=== PATIENT | male | born 1965 | race Caucasian/White ===

== ENCOUNTER 2016-07-06 19:05 | Emergency (ER) | payer MEDICARE | END 2016-07-06 23:59 | disposition home or self-care (01) | LOC: ER1 19:05 | DX: S01.81XA Laceration without foreign body of other part of head, initial encounter (principal); S01.511A Laceration without foreign body of lip, initial encounter; S93.401A Sprain of unspecified ligament of right ankle, initial encounter; S00.83XA Contusion of other part of head, initial encounter; I10 Essential (primary) hypertension; E11.9 Type 2 diabetes mellitus without complications; E66.9 Obesity, unspecified; Z23 Encounter for immunization; Z88.8 Allergy status to other drugs, medicaments and biological substances; Z79.82 Long term (current) use of aspirin; W17.89XA Other fall from one level to another, initial encounter | CPT/HCPCS: 12013; 70450; 72125; 73610; 73630; 90471; 90714; 99284 ==

== ENCOUNTER 2020-07-01 19:23 | Inpatient (IN) | payer OTHER ==
[~2020-07-01] VITALS: Ht 185.4 cm; Wt 125.8 kg
[~2020-07-01 19:23] MED LIST: ALDACTAZIDE 251 EACH PO; ALDACTONE50 MG PO; ATORVASTATIN CA40 MG PO; BASAGLAR K100 UNIT/1 SQ; CARDIZEM CD180 MG PO; CELEBREX 200MG200 MG PO; ECOTRIN81 MG PO; FLEXERIL 10 MG10 MG PO; FLOMAX 0.4 MG0.4 MG PO; HUMALOG100 UNIT/2 SQ; IBUPROFEN800 MG PO; IPRAT-ALBUT 0.5-3 ML INH; KLOR-CON M1010 MEQ PO; LASIX20 MG PO; LEVAQUIN500 MG PO; LISINOPRIL5 MG PO; LOPRESSOR 25 MG25 MG PO; MOBIC7.5 MG PO; NEURONTIN300 MG PO; NORVASC 5 MG TAB5 MG PO; NORVASC10 MG PO; OMEPRAZOLE20 MG PO; PAROXETINE HCL20 MG PO; ROBAXIN500 MG PO; TOUJEO SQ
[2020-07-01 20:17] LABS: HEMOGLOBIN 13.2 gm/dl (14.0-17.5); RED BLOOD COUNT 4.45 M/UL (4.20-5.50); WHITE BLOOD COUNT 6.5 K/UL (4.5-11.0)
[2020-07-01 20:32] LABS: BUN/CREATININE RATIO 19 (0-10)
--- NOTE | 2020-07-02 04:32 | NUR ---
07/02/20 0025 PT NOT SURE OF HOME MEDS. STATES SOME OF THEM HAVE CHANGED VERY RECENT. WOULD LIKE FOR US TO CALL [facility] IN [place] FOR MED LIST. WILL PASS THIS ON TO DAY SHIFT.
[2020-07-02 06:03] LABS: HEMOGLOBIN 13.4 gm/dl (14.0-17.5); RED BLOOD COUNT 4.58 M/UL (4.20-5.50); WHITE BLOOD COUNT 6.8 K/UL (4.5-11.0)
[2020-07-02] MEDS ORDERED: NOVOLOG100 UNIT/1 SC (09:55)
[2020-07-02] MEDS ORDERED: COREG12.5 MG PO (09:59)
[2020-07-02] MEDS ORDERED: SPIRIVA18 MCG INH (10:00)
[2020-07-02] MEDS ORDERED: VENTOLIN HFA 66.7 GM INH (10:00)
[2020-07-02] MEDS ORDERED: CIALIS5 MG PO (10:10)
[2020-07-02] MEDS ORDERED: ADVAIR 250-501 EACH INH (10:16)
[2020-07-02] MEDS ORDERED: CYMBALTA30 MG PO (10:18)
[2020-07-02] MEDS ORDERED: LASIX40 MG PO (10:19)
[2020-07-02] MEDS ORDERED: ZYRTEC10 M3 PO (10:21)
[2020-07-02] MEDS ORDERED: VOLTAREN ARTHRI20 GM TOP (10:22)
--- NOTE | 2020-07-03 02:16 | NUR ---
07/02/201924 PT HAS INSULIN PUMP. PT IS ABLE TO MONITOR HIS OWN BLOOD SUGAR.
[2020-07-03 04:40] LABS: HEMOGLOBIN 13.5 gm/dl (14.0-17.5); RED BLOOD COUNT 4.61 M/UL (4.20-5.50); WHITE BLOOD COUNT 7.7 K/UL (4.5-11.0)
[2020-07-03 05:08] LABS: BUN/CREATININE RATIO 24 (0-10)
[2020-07-04 07:12] LABS: HEMOGLOBIN 14.6 gm/dl (14.0-17.5); WHITE BLOOD COUNT 7.6 K/UL (4.5-11.0)
[2020-07-04 07:13] LABS: RED BLOOD COUNT 5.17 M/UL (4.20-5.50)
[2020-07-04 07:44] LABS: BUN/CREATININE RATIO 29 (0-10)
[2020-07-05 07:15] LABS: HEMOGLOBIN 15.6 gm/dl (14.0-17.5); RED BLOOD COUNT 5.29 M/UL (4.20-5.50); WHITE BLOOD COUNT 6.8 K/UL (4.5-11.0)
[2020-07-05] MEDS ORDERED: ENTRESTO 24 MG1 EACH PO (11:30)
[2020-07-05] MEDS ORDERED: ZAROXOLYN/DIULO5 MG PO (11:30)
== END 2020-07-05 14:28 | disposition home or self-care (01) | DRG 292 ==
LOC: ER1 19:23 → CDU 21:47 → MED SURG 4 21:47
PROVIDERS: Family Medicine; Internal Medicine; ADMIT Internal Medicine
PROC: B24BZZ4 Ultrasonography of Heart with Aorta, Transesophageal (ICD-10-PCS; principal; 2020-07-02)
DX: I11.0 Hypertensive heart disease with heart failure (principal); Z68.42 Body mass index [BMI] 45.0-49.9, adult; I50.23 Acute on chronic systolic (congestive) heart failure; G47.33 Obstructive sleep apnea (adult) (pediatric); E11.9 Type 2 diabetes mellitus without complications; E66.01 Morbid (severe) obesity due to excess calories; I25.10 Atherosclerotic heart disease of native coronary artery without angina pectoris; K21.9 Gastro-esophageal reflux disease without esophagitis; Z20.822 Contact with and (suspected) exposure to COVID-19; I42.8 Other cardiomyopathies; E86.0 Dehydration; G89.29 Other chronic pain; F17.210 Nicotine dependence, cigarettes, uncomplicated; Z96.41 Presence of insulin pump (external) (internal); E78.5 Hyperlipidemia, unspecified; Z91.19 Patient's noncompliance with other medical treatment and regimen; Z79.4 Long term (current) use of insulin; Z79.82 Long term (current) use of aspirin; Z82.49 Family history of ischemic heart disease and other diseases of the circulatory system; Z91.048 Other nonmedicinal substance allergy status
CPT/HCPCS: ECHO; 36415; 36600; 71045; 71046; 80048; 80053; 82550; 82553; 82803; 83605; 83735; 83874; 83880; 84439; 84443; 84484; 85025; 85379; 85610; 86140; 93005; 93306; 96372; 96374; 96376; 99285; G0378; J1650; J1940; J2405; U0002

== ENCOUNTER 2020-07-19 14:51 | Emergency (ER) | payer OTHER ==
[~2020-07-19 14:51] MED LIST changes: +ADVAIR 250-501 EACH INH; +CIALIS5 MG PO; +COREG12.5 MG PO; +CYMBALTA30 MG PO; +ENTRESTO 24 MG1 EACH PO; +LASIX40 MG PO; +NOVOLOG100 UNIT/1 SC; +SPIRIVA18 MCG INH; +VENTOLIN HFA 66.7 GM INH; +VOLTAREN ARTHRI20 GM TOP; +ZAROXOLYN/DIULO5 MG PO; +ZYRTEC10 M3 PO
[2020-07-19 16:10] LABS: HEMOGLOBIN 15.1 gm/dl (14.0-17.5); RED BLOOD COUNT 5.06 M/UL (4.20-5.50); WHITE BLOOD COUNT 7.5 K/UL (4.5-11.0)
[2020-07-19 16:35] LABS: BUN/CREATININE RATIO 28 (0-10)
== END 2020-07-19 17:30 | disposition home or self-care (01) ==
LOC: ER1 14:51
PROVIDERS: Physician Assistant Medical
DX: E11.65 Type 2 diabetes mellitus with hyperglycemia (principal); J44.9 Chronic obstructive pulmonary disease, unspecified; I50.9 Heart failure, unspecified; Z88.8 Allergy status to other drugs, medicaments and biological substances; Z79.4 Long term (current) use of insulin
CPT/HCPCS: 80053; 81001; 82009; 82803; 82962; 85025; 99284; J7030

== ENCOUNTER → 2020-08-02 | Outpatient (CLI) | payer OTHER | LOC: HEART 5 11:30 | DX: I50.9 Heart failure, unspecified (principal); R06.02 Shortness of breath; J98.11 Atelectasis | CPT/HCPCS: 71046; 94060; 94729 ==

== ENCOUNTER → 2020-08-23 | Outpatient (CLI) | payer OTHER | LOC: LAB 09:53 | DX: I11.0 Hypertensive heart disease with heart failure (principal); I50.9 Heart failure, unspecified; I42.0 Dilated cardiomyopathy; E78.00 Pure hypercholesterolemia, unspecified | CPT/HCPCS: 36415; 83880 ==

== ENCOUNTER → 2020-09-10 | Outpatient (CLI) | payer OTHER | LOC: SLEEP 14:56 | DX: G47.33 Obstructive sleep apnea (adult) (pediatric) (principal) | CPT/HCPCS: 95811 ==

== ENCOUNTER → 2020-09-25 | Outpatient (CLI) | payer OTHER | LOC: NM 09:00 | DX: I50.22 Chronic systolic (congestive) heart failure (principal); I42.0 Dilated cardiomyopathy | CPT/HCPCS: 78472; A9560; J1642 ==